=== PATIENT | male | born 1985 | race Caucasian/White ===

== ENCOUNTER 2017-09-28 10:00 | Emergency (ER) | payer OTHER ==
[2017-09-28 10:57] LABS: Bilirubin Negative (Negative); Blood, Urine Moderate (Negative); Clarity Clear (Clear); Glucose, Urine (Dipstick) 100 mg/dL (Negative); Leukocyte Negative (Negative); Nitrite Negative (Negative); Protein, Urine (Dipstick) Trace mg/dL (Neg-Trace); pH, Urine 5.5 (5.0-9.0)
[2017-09-28 10:58] LABS: Specific Gravity, Urine 1.025 (1.002-1.036)
[2017-09-28 11:04] LABS: Bacteria/HPF None Seen HPF (None Seen); RBC/HPF GREATER THAN 50-TNTC HPF (0-3); Squamous Epithelial 0-3 HPF (0-3); WBC/HPF 0-3 HPF (0-3)
--- NOTE | 2017-09-28 11:19 | CT ---
CT ABDOMEN AND PELVIS WITHOUT CONTRAST: Date: 09/28/17 HISTORY: Right-sided flank pain and abdominal pain. FINDINGS: Absence of oral and IV contrast reduces the sensitivity of exam, particularly for evaluation of solid organs and bowel. The lung bases are clear. No calcified gallstones are seen. No free air or free fluid is noted in the abdomen or pelvis. A normal appearing appendix is present. There are tiny bilateral renal calculi. There is mild right-sided hydroureteronephrosis secondary to a 3.0 mm calculus at L3 level. No calculi seen in the left ureter or the urinary bladder. No left-lorraine ed hydroureteronephrosis is identified. No acute osseous abnormalities are seen. IMPRESSION: 1. Bilateral nonobstructing renal calculi. 2. 3.0 mm right ureteric calculus at L3 level with mild ipsilateral hydroureteronephrosis. POS: OFF
[2017-09-28] MEDS ORDERED: Ketorolac Tromethamine 60 MG/2 ML VIAL ONE (11:21)
== END 2017-09-28 11:50 | disposition home or self-care (01) ==
LOC: SCSER 10:00
DX: N13.2 Hydronephrosis with renal and ureteral calculous obstruction (principal); E10.9 Type 1 diabetes mellitus without complications; Z79.899 Other long term (current) drug therapy; Z79.4 Long term (current) use of insulin
CPT/HCPCS: 74176; 81003; 81015; 96372; J1885

== ENCOUNTER 2017-10-31 12:52 | Outpatient (CLI) | payer OTHER ==
--- NOTE | 2017-10-31 15:59 | CT ---
ABDOMEN CT WITHOUT CONTRAST PELVIC CT WITHOUT CONTRAST 10/31/17 COMPARISON: 09/28/17 HISTORY: Microscopic hematuria. TECHNIQUE: Abdomen and pelvic CT are performed without IV or oral contrast, utilizing renal stone protocol. Radha nal reformatted images are submitted for interpretation. FINDINGS: ABDOMEN CT: Lung bases are clear. Normal heart size. No pericardial fluid. The descending thoracic aorta and abdo ti aorta have a normal caliber. No periaortic fat stranding. Nonspecific periaortic and aortocaval lymph nodes. Limited evaluation of the solid organs by lack of IV contrast. Grossly solid organs are unremarkable. Gallbladder is unremarkable. Gastric mucosa, duodenum, and multiple normal caliber small bowel loops are noted. Ileocecal junction is normal. Scattered fecal material in nondistended, nondilated colon. Normal caliber appendix. Evaluation of the alimentary canal is limited by the absence of oral contras t. No mesenteric mass, lymphadenopathy, free air or free fluid. Punctate nonobstructing calcification in the lower pole of the left kidney. Punctate nonobstructing c alcification in the mid pole of the right kidney. With regard to the left kidney, no evidence of obst ructive uropathy. The right intrarenal collecting system is unremarkable. There is mild dilatation and stranding involv ing the right ureter. Interval passage of a calculus noted in the right ureter. Previously, the calcu harshad was at the level of the proximal to mid ureter. This calculus has not passed and appears to be in the right aspect of the urinary bladder, likely beyond the right ureterovesicular junction. Calculus measures [address]: No mass, lymphadenopathy, free air or free fluid. No lytic or blastic lesions in the osseous structures. IMPRESSION: Interval passage of the right sided calculus, now presumed to be in the right aspect of the urinary b ladder. There is mild associated obstructive uropathy. POS: OFF
== END 2017-10-31 12:53 | disposition home or self-care (01) ==
LOC: CT 12:52
PROVIDERS: ATTEND Urology
DX: N20.0 Calculus of kidney (principal); R31.29 Other microscopic hematuria; N13.9 Obstructive and reflux uropathy, unspecified
CPT/HCPCS: 74176